=== PATIENT | female | born 1990 | race Caucasian/White ===

== ENCOUNTER 2020-06-19 07:22 | Day surgery (SDC) | payer BC ==
[2020-06-19] MEDS ORDERED: Ondansetron 4 MG/2 ML SDV ONE (07:26)
[2020-06-19] MEDS ORDERED: Lidocaine 2% 5 ML SDV ONE (07:26)
[2020-06-19] MEDS ORDERED: Propofol 200 MG/20 ML SDV ONE (07:27)
[2020-06-19] MEDS ORDERED: HYDROmorphone 2 MG/ML Syringe ONE (07:27)
[2020-06-19] MEDS ORDERED: Midazolam 1 MG/ML 2 ML SDV ONE (07:27)
[2020-06-19] MEDS ORDERED: fentaNYL 100 MCG/2 ML SDV ONE (07:27)
--- NOTE | 2020-06-19 07:50 | PCM.PREANE ---
Preanesthetic Assessment - Anesthesia/Transfusion/Family Hx Anesthesia History: Prior Anesthesia Without Reaction Family History of Anesthesia Reaction: No Transfusion History: No Prior Transfusion(s) - Review of Systems General: No Symptoms Pulmonary: No Symptoms Cardiovascular: No Symptoms Gastrointestinal: No Symptoms Neurological: No Symptoms Other: Reports: None - Physical Assessment NPO Status Date: 06/19/20 NPO Status Time: 00:05 Vital Signs: Last Vital Signs Temp 97.7 F 06/19/20 07:32 Pulse 82 06/19/20 07:32 Resp 16 06/19/20 07:32 BP 122/58 L 06/19/20 07:32 Pulse Ox 97 06/19/20 07:32 Height: 5 ft 3 in Weight: 157 lb ASA Class: 2 Mental Status: Alert & Oriented x3 Airway Class: Mallampati = 2 Dentition: Reports: Normal Dentition ROM/Head Extension: Full Lungs: Clear to Auscultation, Normal Respiratory Effort Cardiovascular: Regular Rate, Regular Rhythm - Lab Values: Laboratory Last Values WBC 12.63 K/uL (4.0-11.0) H 06/19/20 07:34 RBC 4.11 M/uL (4.30-5.90) L 06/19/20 07:34 Hgb 12.8 g/dL (12.0-16.0) 06/19/20 07:34 Hct 38.5 % (36.0-46.0) 06/19/20 07:34 MCV 93.7 fL (80.0-98.0) 06/19/20 07:34 MCH 31.1 pg (27.0-32.0) 06/19/20 07:34 MCHC 33.2 g/dL (31.0-37.0) 06/19/20 07:34 RDW Std Deviation 46.5 fl (28.0-62.0) 06/19/20 07:34 RDW Coeff of Paramjit 14 % (11.0-15.0) 06/19/20 07:34 Plt Count 343 K/uL (150-400) 06/19/20 07:34 MPV 9.00 fL (7.40-12.00) 06/19/20 07:34 Neut % (Auto) 74.8 % (48.0-80.0) 06/19/20 07:34 Lymph % (Auto) 17.5 % (16.0-40.0) 06/19/20 07:34 [place] % (Auto) 5.6 % (0.0-15.0) 06/19/20 07:34 Eos % (Auto) 1.9 % (0.0-7.0) 06/19/20 07:34 Baso % (Auto) 0.2 % (0.0-1.5) 06/19/20 07:34 Neut # (Auto) 9.4 K/uL (1.4-5.7) H 06/19/20 07:34 Lymph # (Auto) 2.2 K/uL (0.6-2.4) 06/19/20 07:34 York # (Auto) 0.7 K/uL (0.0-0.8) 06/19/20 07:34 Eos # (Auto) 0.2 K/uL (0.0-0.7) 06/19/20 07:34 Baso # (Auto) 0.0 K/uL (0.0-0.1) 06/19/20 07:34 Nucleated RBC % 0.0 /100WBC 06/19/20 07:34 Nucleated RBCs # 0 K/uL 06/19/20 07:34 SARS-CoV-2 RNA ([facility]ION) NEGATIVE (NEGATIVE) 06/19/20 06:20 - Allergies Allergies/Adverse Reactions: Allergies Allergy/AdvReac Type Severity Reaction Status Date / Time cefaclor [From [facility]] Allergy Hives Verified 06/19/20 07:43 - Anesthesia Plan Pre-Op Medication Ordered: None - Acknowledgements Anesthesia Type Planned: General Anesthesia Pt an Appropriate Candidate for the Planned Anesthesia: Yes Alternatives and Risks of Anesthesia Discussed w Pt/Guardian: Yes Pt/Guardian Understands and Agrees with Anesthesia Plan: Yes Additional Comments: npo after mn ptsd tch prn not while anxiety tob none etoh occ par no questions PreAnesthesia Questionnaire HEENT History: Reports: None Cardiovascular History: Reports: None Respiratory History: Reports: None Gastrointestinal History: Reports: None Genitourinary History: Reports: None [employer] History: Reports: Musculoskeletal History: Reports: None Neurological History: Reports: None Psychiatric History: Reports: Anxiety, Depression, PTSD Endocrine/Metabolic History: Reports: None Hematologic History: Reports: None Immunologic History: Reports: None Oncologic (Cancer) History: Reports: None Dermatologic History: Reports: None - Past Surgical History Head Surgeries/Procedures: Reports: None HEENT Surgical History: Reports: None Cardiovascular Surgical History: Reports: None Respiratory Surgical History: Reports: None GI Surgical History: Reports: None Female Surgical History: Reports: None Endocrine Surgical History: Reports: None Neurological Surgical History: Reports: None Musculoskeletal Surgical History: Reports: Other (See Below) Other Musculoskeletal Surgeries/Procedures:: bunionectomy 2008, removal of hardware 2009 Oncologic Surgical History: Reports: None Dermatological Surgical History: Reports: None - SUBSTANCE USE Tobacco Use Status *Q: Former Tobacco User Recreational Drug Type: Reports: Marijuana/Hashish Recreational Drug Last Use: Mar, 2020 - HOME MEDS Home Medications: Home Meds . [No Known Home Meds] 06/15/20 [History] - CURRENT (IN HOUSE) MEDS Current Meds: Current Medications Discontinued Medications Fentanyl (Fentanyl 100 Mcg/2 Ml Sdv) Confirm Administered Dose 100 mcg .ROUTE .STK-MED ONE Stop: 06/19/20 07:28 Hydromorphone HCl (Hydromorphone 2 Mg/Ml Syringe) Confirm Administered Dose 2 mg .ROUTE .STK-MED ONE Stop: 06/19/20 07:28 Lidocaine (Lidocaine 2% 5 Ml Sdv) Confirm Administered Dose 5 ml .ROUTE .STK-MED ONE Stop: 06/19/20 07:27 Midazolam HCl (Midazolam 1 Mg/Ml 2 Ml Sdv) Confirm Administered Dose 2 mg .ROUTE .STK-MED ONE Stop: 06/19/20 07:28 Ondansetron HCl (Ondansetron 4 Mg/2 Ml Sdv) Confirm Administered Dose 4 mg .ROUTE .STK-MED ONE Stop: 06/19/20 07:27 Propofol (Propofol 200 Mg/20 Ml Sdv) Confirm Administered Dose 600 mg .ROUTE .STK-MED ONE Stop: 06/19/20 07:28
--- NOTE | 2020-06-19 08:45 | PCM.OPNOTE ---
- General Post-Op/Procedure Note Date of Surgery/Procedure: 06/19/20 Operative Procedure(s): Suction dilation and curettage Findings: 10 week sized anteverted uterus. Pre Op Diagnosis: Missed Post-Op Diagnosis: Missed Anesthesia Technique: General LMA Primary Surgeon: Chandrika Viveros Anesthesia Provider: Shoaib Garrison Pathology: Products of conception Fluid Replacement, Intraop: 800 (crystalloid) Output, Urine Amount: 20 (straight cathed prior to procedure) EBL in mLs: 400 Complications: None known Condition: Good Free Text/Narrative:: Intake & Output 06/18/20 06/19/20 06/19/20 22:59 06:59 14:59 Output Total 20 Balance -20 Dictation #[id number]
--- NOTE | 2020-06-19 09:14 | PCM.POSTAN ---
POST ANESTHESIA ASSESSMENT - MENTAL STATUS Mental Status: Alert, Oriented - VITAL SIGNS Vital Signs: Last Vital Signs Temp 36.4 C 06/19/20 08:50 Pulse 73 06/19/20 08:50 Resp 14 06/19/20 08:50 BP 104/61 06/19/20 08:50 Pulse Ox 95 06/19/20 08:50 - RESPIRATORY Respiratory Status: Respiratory Rate WNL, Airway Patent, O2 Saturation Stable - CARDIOVASCULAR CV Status: Pulse Rate WNL, Blood Pressure Stable - GASTROINTESTINAL GI Status: No Symptoms - PAIN Pain Score: 5 Free Text/Narrative:: Reports mild to moderate (but tolerable) abdominal cramping - POST OP HYDRATION Hydration Status: Adequate & Stable
--- NOTE | 2020-06-19 10:21 | PCM48HPAN ---
Post Anesthesia Note - EVALUATION WITHIN 48HRS OF ANESTHETIC Vital Signs in Normal Range: Yes Patient Participated in Evaluation: Yes Respiratory Function Stable: Yes Airway Patent: Yes Cardiovascular Function Stable: Yes Hydration Status Stable: Yes Pain Control Satisfactory: Yes (3/10 abdominal cramping, tolerable) Nausea and Vomiting Control Satisfactory: Yes (Denies nausea) Mental Status Recovered: Yes Vital Signs: Last Vital Signs Temp 36.4 C 06/19/20 08:50 Pulse 79 06/19/20 09:35 Resp 14 06/19/20 09:35 BP 103/56 L 06/19/20 09:35 Pulse Ox 96 06/19/20 09:35 - COMMENTS/OBSERVATIONS Free Text/Narrative:: Late entry, patient assessed at 1008.
--- NOTE | 2020-06-19 14:28 | OR ---
SURGEON: WHITNEY VIVEROS MD DATE OF PROCEDURE: 06/19/2020 PROCEDURE: Suction dilation and curettage. PREOPERATIVE DIAGNOSIS: Missed . POSTOPERATIVE DIAGNOSIS: Missed . PROCEDURE: Suction dilation and curettage. PRIMARY SURGEON: Whtiney Viveros MD DOCUMENTATION LIAISON: None. ANESTHESIA: General LMA. COMPLICATIONS: None known. ESTIMATED BLOOD LOSS: 400 mL. INTRAVENOUS FLUID: 800 mL of crystalloid. URINE OUTPUT: 20 mL, straight cath prior to procedure. FINDINGS: 10-week size anteverted uterus. PATHOLOGY: Products of conception. INDICATIONS: A 29-year-old 2, para 1 female presented to [facility] for new obstetric appointment and repeat ultrasound last week. She was approximately 10 weeks and 4 days by last menstrual period. Transvaginal ultrasound was performed with pole measuring 6 weeks and 4 days with no heart tones. Previous transvaginal ultrasound performed 1 week prior showed an empty gestational sac. Beta hCG levels at initial appointment were 54,000 and repeat 1 week later was 34,000. After reviewing options for further management, the patient desired to proceed with suction dilation and curettage due to remote location from facility. PROCEDURE IN DETAIL: After informed consent and risks of the procedure were reviewed, the patient was taken to the operating room where anesthesia was induced. She was then prepped and draped in the dorsal lithotomy position. A Graves speculum was then inserted into the vagina to visualize the cervix. The cervix was then grasped at 12 o'clock with a single-tooth tenaculum. The cervix was then dilated to 9 Hegar. A curved 9 mm suction curette was then slowly advanced to the fundus. It was then attached to suction and rotated to clear the uterus of products of conception. A sharp curettage was then performed until a gritty texture was noted. The suction curettage was then performed once more under direct visualization with a bedside abdominal ultrasound scan. The gestational sac was noted to be collapsed at that time, and the suction curette was then removed. Tenaculum then removed. Minimal bleeding was noted at the tenaculum site. Pressure was held momentarily, and good hemostasis was then noted. All instruments were then removed from the vagina. Sponge, lap, and needle counts were correct x2. The patient tolerated the procedure well and was taken to recovery in stable condition. MARORAC / MODL /[id number]
== END 2020-06-19 10:08 | disposition home or self-care (01) ==
LOC: MW.SDS 07:22
PROVIDERS: ATTEND Obstetrics & Gynecology
DX: O02.1 Missed abortion (principal); Z01.812 Encounter for preprocedural laboratory examination; Z20.822 Contact with and (suspected) exposure to COVID-19; Z88.8 Allergy status to other drugs, medicaments and biological substances; Z87.891 Personal history of nicotine dependence; Z98.890 Other specified postprocedural states
CPT/HCPCS: 36415; 59820; 85025; 87635; 88305; J1170; J2250; J2405; J2704; J3010; 01965; U0002